=== PATIENT | male | born 1945 | race Caucasian/White ===

== ENCOUNTER → 2020-03-22 09:57 | Outpatient (CLI) | payer MEDICARE, SELFPAY ==
--- NOTE | ~2020-03-22 | XR_ITS ---
XR hand BI arthritis min 3V DATE: 03/22/2020 10:20 INDICATION: Bilateral hand pain TECHNIQUE: 4 views of each hand COMPARISON: None FINDINGS: Small chronic dorsal avulsion fracture at the base of the distal phalanx of the second digi t is suggested; alternatively, this might be a small degenerative ossicle. There is osteoarthritic change at the distal interphalangeal joints primarily of the left hand. No fracture or dislocation, periosteal reaction or bone destruction, erosive change or chondrocalcino sis of the left hand. Similarly there is a small dorsal avulsion fracture or degenerative ossicle at the distal interphalan geal joint of the right second digit, as well as osteoarthritic change primarily at the distal interp halangeal joints as well as the proximal interphalangeal joint of the fifth digit. There is also a sm all probable degenerative ossicle at the proximal interphalangeal joint of the fifth digit. No recent fracture or dislocation, periosteal reaction or bone destruction, erosive change or chondro calcinosis of the right hand is evident. 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 ETIC EVENTS SCORER IMPRESSION: Bilateral osteoarthritis involving primarily the distal interphalan geal joints and right fifth proximal interphalangeal joint
== END ==
PROVIDERS: PCP Internal Medicine; Visit Provider Nurse Practitioner
DX: M19.041 Primary osteoarthritis, right hand (principal); M19.042 Primary osteoarthritis, left hand
CPT/HCPCS: 73130

== ENCOUNTER → 2020-04-27 10:43 | Outpatient (CLI) | payer MEDICARE, SELFPAY ==
--- NOTE | ~2020-04-27 | CT_ITS ---
EXAMINATION: CTA [facility] DATE: 04/27/2020 12:06 INDICATION: TECHNIQUE: Computed tomographic angiography (CTA) of the arteries of the bilateral hands, wrists and forearms was performed with 100 mL Omnipaque 350 intravenous contrast. Automated exposure control and iterative reconstruction technique were employed. The dose-length product was 172 mGy-cm. COMPARISON: None. FINDINGS: There is runoff with contrast opacification extending to the hands in the bilateral radial and ulnar arteries. The radial arteries at the bilateral hands appear to be the predominant supply to the deep palmar arch as well as the principle pollicis arteries to the bilateral thumbs. The bilateral ulnar a rteries appear to be the predominant supply to the superficial palmar arch on both the left and right . Although contrast is seen within these arteries in the bilateral hands the degree of contrast opaci fication as well as the small size of the arteries precludes assessment for any stenosis. No discerni ble contrast within the digital arteries, the size of which is likely too small for definitive determ ination. Bones and soft tissues are unremarkable. IMPRESSION: 1. Runoff in the bilateral radial and ulnar arteries to the hands which appear to supply the deep an d superficial palmar arches respectively. Assessment for patency of the more peripheral distal arteri es or for stenosis more proximally is limited by the small size of the vessels relative to the resolu tion of CT. Reviewed, dictated and finalized at location A. STICAL TILE CARPENTERS SUPERVISOR IMPRESSION: 1. Runoff in the bilateral radial and ulnar arteries to the hands which appear to supply the deep and superficial palmar arches respectively. Assessment for patency of the more peripheral distal arteries or for stenosis more proximally is limited by the small size of the vessels relative to the resolution of CT.
[2020-04-27 11:01] LABS: Estimated Glomerular Filt Rate > 60
== END ==
PROVIDERS: PCP Internal Medicine; Visit Provider Plastic Surgery
DX: I99.8 Other disorder of circulatory system (principal)
CPT/HCPCS: 73206; Q9967

== ENCOUNTER 2020-05-04 10:39 | Outpatient (CLI) | payer MEDICARE, SELFPAY ==
[2020-05-04 11:06] LABS: Add Urine Microscopic? NO; Appearance Urine Clear (Clear); Bilirubin Urine Negative (Negative); Blood Urine Negative (Negative); Color Urine Yellow (Yellow); Glucose Urine UA Negative (Negative); Ketones Urine Negative (Negative); Leukocyte Esterase Ur Negative LEU/UL (NEGATIVE); Nitrate Urine Negative (Negative); Protein Urine Negative (Negative); Urobilinogen Urine Negative mg/dL (<2.0)
[2020-05-04 11:21] LABS: Alanine Aminotransferase 37 U/L (4-50); Albumin Level 4.3 g/dL (3.5-5.1); Alkaline Phosphatase 63 U/L (38-126); Anion Gap 6 mmol/L (8-16); Aspartate Amino Transferase 49 U/L (17-59); Bilirubin,Total 0.5 mg/dL (0.2-1.3); Blood Urea Nitrogen 13 mg/dL (9-20); CRP < 0.5 mg/dL (<1.0); Calcium 9.1 mg/dL (8.4-10.2); Carbon Dioxide 31 mmol/L (22-30); Chloride 97 mmol/L (98-107); Estimated Glomerular Filt Rate > 60; Glucose 100 mg/dL (75-110); Sodium 134 mmol/L (137-145)
[2020-05-04 11:26] LABS: Complement C3 112 mg/dL (88-165)
[2020-05-04 11:28] LABS: Erythrocyte Sedimentation Rate 15 mm/hr (0-20)
[2020-05-07 12:44] LABS: Scleroderma 70 Antibody <1.0
[2020-05-09 04:04] LABS: Cryoglobulin, QL Negative (Negative)
[2020-05-09 04:33] LABS: Anti Centromere B Antibody <1.0
== END 2020-05-04 10:40 | disposition home or self-care (01) ==
PROVIDERS: PCP Internal Medicine; Visit Provider Internal Medicine
DX: I73.00 Raynaud's syndrome without gangrene (principal); R53.83 Other fatigue
CPT/HCPCS: 36415; 80053; 81003; 82595; 84443; 85652; 86140; 86160; 86235

== ENCOUNTER 2022-05-05 08:31 | Outpatient (CLI) | payer MEDICARE, SELFPAY ==
--- NOTE | ~2022-05-05 | US_ITS ---
EXAMINATION: US arterial ankle brachial ind DATE: 05/05/2022 09:31 INDICATION: Lower limb pain TECHNIQUE: Segmental pressures and plethysmographic and Doppler waveforms of the brachial and lower e xtremity arteries were obtained. COMPARISON: None. FINDINGS: Right and left brachial artery pressures of 131 mm Hg and 135 mm Hg, respectively, are concordant (no rmal difference <= 30 mmHg). The right ankle-brachial index (MISAEL) is 1.39 (normal >= 0.9-1.0). The right great toe-brachial index (TBI) is 0.50 (normal >= 0.65). Arterial Doppler waveforms are biphasic with brisk systolic upstrokes at both right posterior tibial and dorsalis pedis arteries. The left MISAEL is 1.42. The left TBI is 0.69. Arterial Doppler waveforms are biphasic with brisk systol ic upstrokes at both left posterior tibial and dorsalis pedis arteries. IMPRESSION: 1. Mild arterial occlusive disease to the right lower limb with mildly decreased right TBI. Bilateral ABIs and left TBI remain normal. Reviewed, dictated and finalized at location A. CONTROL SERVICE SALES AGENT IMPRESSION: 1. Mild arterial occlusive disease to the right lower limb with mildly decrease d right TBI. Bilateral ABIs and left TBI remain normal.
== END 2022-05-05 08:32 | disposition home or self-care (01) ==
PROVIDERS: PCP Internal Medicine; Visit Provider Nurse Practitioner
DX: M79.606 Pain in leg, unspecified (principal); I73.9 Peripheral vascular disease, unspecified
CPT/HCPCS: 93922

== ENCOUNTER 2022-05-30 17:20 | Emergency (ER) | payer MEDICARE, SELFPAY ==
[2022-05-30] VITALS (13 sets, daily range): BP systolic 114–164; BP diastolic 60–85; PULSE 45–77; RESP 12–30; TEMP 37; O2SAT 96–100
--- NOTE | ~2022-05-30 | CT_ITS ---
EXAMINATION: CT thoracic spine wo con DATE: 05/30/2022 21:13 INDICATION: back pain status post fall . TECHNIQUE: Computed tomography (CT) of the thoracic spine was performed without intravenous contrast. Automated exposure control and iterative reconstruction technique were employed. The dose-length pro duct was 1527.99 mGy-cm. COMPARISON: X-ray RIBS, same date. FINDINGS: THORACIC SPINE: Vertebral body alignment intact. Mild height loss at T5 with superior endplate deformity. No definite evidence of posterior cortex or posterior element involvement. Remaining vertebral body heights pres erved. Multilevel degenerative disc disease. No traumatic malalignment. Visualized lung parenchyma is clear. Coronary artery calcifications IMPRESSION: Mild compression fracture at T5. Reviewed, dictated and finalized at location K.
--- NOTE | ~2022-05-30 | XR_ITS ---
EXAMINATION: XR ribs BI 3V w CXR 2V Exam Date/Time: 05/30/2022 18:45 CDT HISTORY: fall, bilateral rib pain, MORE PAIN RIGHT SIDE Comparison: 07/14/2014. RESULT: Lines, tubes, and devices: None. Lungs and pleura: Clear. Cardiothymic silhouette: Stable. Other: No acute upper abdominal finding. Mild anterior wedge deformity of an upper thoracic vertebra l body, likely T5, new since the comparison. IMPRESSION: No acute cardiopulmonary process. Mild anterior wedge deformity, likely at T5, of uncertain age, paulette elate with pain/tenderness. No acute abnormality detected in the ribs. Reviewed, dictated and finalized at location K. IMPRESSION: No acute cardiopulmonary process. Mild anterior wedge deformity, likely at T5, of uncertain age, correlate with pain/tenderness. No acute abnormality detected in the ribs.
[2022-05-30] MEDS: HYDROmorphone HCL INJ (*CRX) 1 MG/ML SYR IM (21:37)
--- NOTE | 2022-05-30 22:12 | ECG_ITS ---
Measurements Intervals [place] Rate: 58 P: 133 [place]: 166 QRS: 152 QRSD: 111 T: 123 QT: 400 QTc: 395 Interpretive Statements SINUS BRADYCARDIA RIGHT AXIS DEVIATION POSSIBLE LEFT ATRIAL ENLARGEMENT INTRAVENTRICULAR CONDUCTION DELAY DELAYED PRECORDIAL R/S TRANSITION T WAVE ABNORMALITY IN HIGH LATERAL LEADS- CONSIDER ISCHEMIA ABNORMAL ECG COMPARED TO ECG 12/23/2018 10:53:10 INTRAVENTRICULAR CONDUCTION DELAY NOW PRESENT T WAVE ABNORMALITY NOW PRESENT Electronically Signed On 05-31-2022 6:43:07 CDT by Delonte Mosquera D.O.
--- NOTE | 2022-05-30 22:55 | PC.NURSE ---
Pt report given to ZACK Lomeli at this time.
[2022-05-30] MEDS: KETOROLAC 30 MG/ML VIAL (*BKC) 15 MG IM (23:00)
[2022-05-31 00:24] VITALS: PULSE 68; O2SAT 98
--- NOTE | 2022-05-31 00:40 | ED.GENADULT ---
HPI - General Adult General Chief complaint: Fall Stated complaint: Fall Time Seen by Provider: 05/30/22 20:29 History of Present Illness HPI narrative: Patient 77-year-old gentleman who presents the emergency department with chief complaint of rib pain and back pain. The patient [place] and landed on his back. The patient reports he has pain in the right side of his ribs and in his thoracic spine area. Patient denies numbness or tingling denies focal neurological deficit denies saddle anesthesia. Patient states pain is worse with movement and improved with rest. Related Data Home Medications Medication Instructions Recorded Confirmed multivitamin 1 tablet PO DAILY 03/27/19 07/25/21 Allergies Allergy/AdvReac Type Severity Reaction Status Date / Time No Known Allergies Allergy Unknown Verified 05/22/22 11:03 Review of Systems Review of Systems: A 10 system review of systems was completed on the patient and is negative except for what is stated in the HPI. Nursing and ancillary documentation was reviewed. [facility] Past Medical History Medical History Bladder cancer Chicken pox Erectile dysfunction Ganglion cyst removed Hyperlipidemia Hypothyroidism (acquired) Peripheral arterial disease Rising PSA level Skin cancer removed White coat syndrome with high blood pressure but without hypertension Surgical History Surgical History History of biopsy History of bladder surgery 12/26/2018 Family History Family History Sibling Type 2 diabetes mellitus Father Type 2 diabetes mellitus CHF (congestive heart failure) Mother Type 2 diabetes mellitus Social History Social History Smoking status: Never smoker Alcohol intake: current Alcohol use details: 3-4 glasses of wine a week. Substance use type: does not use Lack of Transportation: No Lack of Food: Never True Current Housing: I Have Housing Concerned About Future Housing: No Difficulty Paying Gas/Electric Bills: No Difficulty Paying for Meds: No Currently Unemployed: No Education: Master's Degree or Higher Difficulty w/ Childcare or Family Care: No Exam Narrative: GENERAL: Well-appearing, well-nourished, and in no acute distress. HEAD: Normocephalic, atraumatic. EYES: PERRLA and EOMI. ENT: Nares clear, no rhinorrhea or epistaxis. Mucous membranes moist. NECK: Supple. CHEST: Clear to auscultation. No respiratory distress. HEART: Regular rate and rhythm. No murmur heard. Normal peripheral pulses. ABDOMEN: Soft, nontender, nondistended, normal active bowel sounds. Back: There is tenderness to palpation in the thoracic spine no bony step-off noted EXTREMITIES: Normal range of motion. No edema. SKIN: Warm, dry, no rash. NEURO: No focal deficits. Alert and oriented x3. PSYCH: Normal mood and affect. Course Vital Signs Vital signs: Vital Signs Temperature 37.0 C 05/30/22 17:45 Pulse Rate 73 05/30/22 17:45 Respiratory Rate 12 05/30/22 17:45 Blood Pressure 164/78 H 05/30/22 17:45 Pulse Oximetry 99 05/30/22 17:45 Oxygen Delivery Room Air 05/30/22 17:45 Temperature 37.0 C 05/30/22 17:45 Pulse Rate 57 L 05/30/22 22:17 Respiratory Rate 14 05/30/22 22:17 Blood Pressure 126/61 05/30/22 22:16 Pulse Oximetry 100 05/30/22 22:17 Oxygen Delivery Room Air 05/30/22 17:45 Medical Decision Making MDM Narrative Medical decision making narrative: Differential diagnosis includes fractures, pneumothorax, Rib x-ray showed no evidence of pneumothorax no evidence of rib fracture this displaced. There was a possible compression fracture present in the thoracic spine and they recommended additiona
[2022-05-31 01:10] VITALS: BP 122/76; PULSE 75; RESP 18; O2SAT 98
== END 2022-05-31 01:10 | disposition home or self-care (01) ==
PROVIDERS: Emergency Provider Emergency Medicine; PCP Internal Medicine
DX: S22.050A Wedge compression fracture of T5-T6 vertebra, initial encounter for closed fracture (principal); S20.211A Contusion of right front wall of thorax, initial encounter; Z85.51 Personal history of malignant neoplasm of bladder; E78.5 Hyperlipidemia, unspecified; E03.9 Hypothyroidism, unspecified; I73.9 Peripheral vascular disease, unspecified; Z85.828 Personal history of other malignant neoplasm of skin; R00.1 Bradycardia, unspecified; I45.9 Conduction disorder, unspecified; R94.31 Abnormal electrocardiogram [ECG] [EKG]; W01.0XXA Fall on same level from slipping, tripping and stumbling without subsequent striking against object, initial encounter; Y93.54 Activity, bowling
CPT/HCPCS: 71046; 71110; 72128; 93005; 96372; 99284; J1170; J1885

== ENCOUNTER 2022-06-09 07:58 | Outpatient (CLI) | payer MEDICARE, SELFPAY ==
[2022-06-13 16:22] LABS: Testosterone Free 42.8 pg/mL (30.0-135.0); Testosterone Total 329 ng/dL (250-1100)
== END 2022-06-09 07:59 | disposition home or self-care (01) ==
LOC: ANHGOSHLAB 07:59
PROVIDERS: PCP Internal Medicine; Visit Provider Anesthesiology Pain Medicine
DX: S22.050D Wedge compression fracture of T5-T6 vertebra, subsequent encounter for fracture with routine healing (principal); X58.XXXD Exposure to other specified factors, subsequent encounter
CPT/HCPCS: 36415; 84402; 84403

== ENCOUNTER 2022-09-07 07:56 | Outpatient (CLI) | payer MEDICARE, SELFPAY ==
[2022-09-07 19:33] LABS: Erythrocyte Sedimentation Rate 8 mm/hr (0-20)
[2022-09-07 19:41] LABS: Rheumatoid Factor < 12.0 IU/ML (<12)
[2022-09-07 20:39] LABS: Hepatitis B Core IgM Result Negative (Negative)
[2022-09-07 20:43] LABS: HIV 1/2 Ab P24 Ag Result Negative (Negative)
[2022-09-07 20:51] LABS: Hepatitis C Virus Antibody Negative (Negative)
[2022-09-10 13:36] LABS: SS-A <1.0; SS-B <1.0
[2022-09-10 15:21] LABS: Albumin 4.2 g/dL (3.8-4.8); Alpha 1 Globulin 0.3 g/dL (0.2-0.3); Alpha 2 Globulin 0.7 g/dL (0.5-0.9); Beta 1 Globulin 0.4 g/dL (0.4-0.6); Gamma Globulin 0.9 g/dL (0.8-1.7); Protein, Total 6.8 g/dL (6.1-8.1)
[2022-09-11 05:52] LABS: Homocysteine 10.2 umol/L (<11.4)
[2022-09-11 19:10] LABS: Methylmalonic Acid 122 nmol/L (87-318)
[2022-09-11 19:16] LABS: Lyme Disease Ab (IgM), Blot Negative (Negative); Lyme Disease Ab(IgG), Blot Negative (Negative)
[2022-09-12 05:54] LABS: Creatinine, Random Urine 47 mg/dL (20-320); Total Protein/Creatinine Ratio 106 mg/g creat (25-148)
[2022-09-14 23:53] LABS: Coproporphyrin I 20.9 (6.5-33.2)
== END 2022-09-07 07:57 | disposition home or self-care (01) ==
LOC: ANHGOSHLAB 07:58
PROVIDERS: PCP Internal Medicine; Visit Provider Nurse Practitioner
DX: G62.9 Polyneuropathy, unspecified (principal)
CPT/HCPCS: 36415; 82570; 82607; 83090; 83921; 84120; 84155; 84156; 84165; 84166; 84443; 85652; 86038; 86235; 86430; 86617; 86703; 86705; 86803; G0432

== ENCOUNTER 2023-02-23 08:00 | Outpatient (RCR) | payer MEDICARE, SELFPAY ==
--- NOTE | 2023-01-26 12:54 | OPREHPOC ---
Outpatient Therapy Plan of Care This is a Multidisciplinary Plan of Care that may contain components documented by all disciplines (PT, OT, and ST.) PT Problem 1 PT Problem #1 Knowledge Deficit PT Goal 1 Goal Pt to be IND with issued HEP Target Visit 4 PT Problem 2 PT Problem #2 Impaired Balance PT Goal 1 Goal Pt to report no LOB during morning walk. Target Visit 4 PT Goal 2 Goal Pt to improve his single leg stance to 10s deana Target Visit 4 PT Problem 3 PT Problem #3 Impaired Functional Mobil PT Goal 1 Goal Pt to demonstrate a 20lb lift and carry from ground without a LOB. Target Visit 4
--- NOTE | 2023-01-26 12:54 | PTOPEVAL1 ---
Assessment and note entered by Minal Barrera, PT, DPT Evaluation Information Assessment Status Evaluation Diagnosis polyneuropathy Subjective Information Pt states about a year ago he stated waking up with a warm, burning, and numbing feeling in his BLEs. Pt states he is not diabetic but has positive axonal involvement on a nerve conduction study. Pt states in the last couple of months has noticed veering off path when he is walking and a change in his gait. Pt is very active at his baseline, he currently walks about 3-4 miles a day , he still bikes, does yard work, and exercises multiple times a week. Reported Pain Level Pain Score 6: Self Report Assessment PT Clinical Summary Willy presents to therapy today for his initial evaluation with a diagnosis of polyneuropathy with balance deficits. Today he demonstrates good scores on the PEREZ and DGI but demonstrates decreased stability with higher level balance challenges. He also demonstrates less confidence with dynamic balance challenges. Skilled therapy services are indicated for balance training, functional movement training, and to improve confidence with balance. Plan of Care Interventions Gait Training,Neuro Re-education,Patient/Caregiver Educati,Therapeutic Activities,Therapeutic Exercise PT Services Indicated Yes Treatment Frequency and 1x/wk for 4 visits Duration These treatments will address the objective and functional deficits as defined above. The patient will be advanced safely and appropriately in order for the patient to progress towards his/her prior level of function. Additional exercises will be introduced and as well as a comprehensive home exercise program upon discharge, if needed, ?to ensure carryover of functional gains achieved in the clinic. This treatment plan has been reviewed and agreement upon by the patient.
--- NOTE | 2023-02-23 08:53 | PTOPPROG ---
Assessment and note entered by Minal Barrera, PT, DPT Evaluation Information Assessment Status Progress Diagnosis polyneuropathy Subjective Information Pt got his nerve conduction test which showed neuropathy, but not the traditional neuropathy, he his supposed to call with more specific results. Pt feels like pt has been helping. He states when he walks in the morning he does not feel like he weaves around and is no longer bumping into batres at home. He reports the intensity of his numbness has not changed. Assessment PT Clinical Summary Willy presents to therapy today for his progress report following 5 visits of skilled therapy to treat his diagnosis of polyneuropathy. Today he demonstrates improvements in his static and dynamic single leg balance. He reports improved functional mobility and functional balance when walking. He continues to have impaired sensations in his feet deana. Educated pt on the benefits electric nerve conduction to treat his neuropathy. Plan of Care Interventions Gait Training,Neuro Re-education,Patient/Caregiver Educati,Therapeutic Activities,Therapeutic Exercise PT Services Indicated Yes Treatment Frequency and follow up if needed Duration These treatments will address the objective and functional deficits as defined above. The patient will be advanced safely and appropriately in order for the patient to progress towards his/her prior level of function. Additional exercises will be introduced and as well as a comprehensive home exercise program upon discharge, if needed, ?to ensure carryover of functional gains achieved in the clinic. This treatment plan has been reviewed and agreement upon by the patient.
--- NOTE | 2023-03-13 13:55 | PTOPDC ---
Assessment and note entered by Minal Barrera, PT, DPT Evaluation Information Assessment Status Discharge Diagnosis polyneuropathy Subjective Information Pt got his nerve conduction test which showed neuropathy, but not the traditional neuropathy, he his supposed to call with more specific results. Pt feels like pt has been helping. He states when he walks in the morning he does not feel like he weaves around and is no longer bumping into batres at home. He reports the intensity of his numbness has not changed. Assessment PT Clinical Summary Willy presents to therapy today for his progress report following 5 visits of skilled therapy to treat his diagnosis of polyneuropathy. Today he demonstrates improvements in his static and dynamic single leg balance. He reports improved functional mobility and functional balance when walking. He continues to have impaired sensations in his feet deana. Educated pt on the benefits electric nerve conduction to treat his neuropathy.
== END 2023-03-13 14:17 | disposition home or self-care (01) ==
LOC: ANHGOSHPT 08:00
PROVIDERS: PCP Internal Medicine
DX: R26.89 Other abnormalities of gait and mobility (principal); G62.9 Polyneuropathy, unspecified
CPT/HCPCS: 97110; 97112; 97161; 97750

== ENCOUNTER 2023-05-31 07:54 | Outpatient (CLI) | payer MEDICARE, SELFPAY ==
[2023-05-31 12:48] LABS: Basophils Absolute Auto 0.1 K/mm3 (0.0-0.1); Basophils Percent Auto 1.3 % (0.2-1.2); Eosinophils Absolute Auto 0.1 K/mm3 (0-0.3); Eosinophils Percent Auto 1.8 % (0-4.4); Hematocrit 42.7 % (42.0-52.0); Hemoglobin 13.3 g/dL (14.0-18.0); Immature Granulocyte Absolute 0.01 K/mm3 (0.00-0.031); Immature Granulocyte Percent A 0.2 % (0-0.5); Lymphocytes Absolute Auto 2.32 K/mm3 (0.9-3.2); Lymphocytes Percent Auto 41.4 % (18.3-44.2); Mean Corpuscular HGB Conc 31.1 g/dl (32-36); Mean Corpuscular Hemoglobin 28.5 pg (26-34); Mean Corpuscular Volume 91.6 fl (80-100); Mean Platelet Volume 10.5 fl (7.4-10.4); Monocytes Absolute Auto 0.5 K/mm3 (0.1-0.6); Monocytes Percent Auto 9.5 % (2.6-8.5); Neutrophils Absolute Auto 2.6 K/mm3 (1.3-6.7); Neutrophils Percent Auto 45.8 % (45.5-73.1); Platelet Count Result 269 k/mm3 (150-375); Red Blood Count 4.66 M/mm3 (4.6-6.20); Red Cell Distribution Width 12.9 % (11.5-14.5); White Blood Count 5.6 K/mm3 (4.5-10.0)
[2023-05-31 13:00] LABS: Alanine Aminotransferase 33 U/L (6-50); Albumin Level 4.4 g/dL (3.5-5.1); Alkaline Phosphatase 78 U/L (38-126); Anion Gap 6 mmol/L (8-16); Aspartate Amino Transferase 64 U/L (17-59); Bilirubin,Total 0.6 mg/dL (0.2-1.3); Blood Urea Nitrogen 14 mg/dL (9-20); Calcium 9.3 mg/dL (8.4-10.2); Carbon Dioxide 29 mmol/L (22-30); Chloride 100 mmol/L (98-107); Cholesterol 140 mg/dL (0-200); Estimated Glomerular Filt Rate > 60; Glucose 93 mg/dL (65-110); HDL Direct 58 mg/dL; Potassium 4.4 mmol/L (3.4-5.0); Sodium 135 mmol/L (137-145); Triglycerides 50 mg/dL (<150)
[2023-05-31 13:10] LABS: LDL Cholesterol Direct 66 mg/dL
== END 2023-05-31 07:55 | disposition home or self-care (01) ==
LOC: ANHGOSHLAB 07:55
PROVIDERS: PCP Internal Medicine; Visit Provider Nurse Practitioner
DX: E03.9 Hypothyroidism, unspecified (principal); E78.2 Mixed hyperlipidemia; R73.03 Prediabetes; R97.20 Elevated prostate specific antigen [PSA]
CPT/HCPCS: 36415; 80053; 80061; 84153; 84443; 85025

== ENCOUNTER 2024-06-02 08:06 | Outpatient (CLI) | payer MEDICARE, SELFPAY ==
--- OUTSIDE RECORDS SUMMARY | 2024-06-02 08:19 | XMS_ITS | Encounter Summary ---
Author Organization [facility] Address [address] [place] [address] Care Team Providers Care Manager Desktop Name Role Phone Unavailable Primary Care Provider Unavailabl e Encounter Details Date Type Department Care Team (Late st Contact Info) Description 05/10/2022 Lab Requisition [facility] [address] [place] [id number] Dominguez Ho MD [address] [place] [address] Social History Tobacco Use Types Packs/Day Years Used Date Smoking Tobacco: Never Assessed Sex and Gender Information Value Date Recorded Sex Assigned at Not on file Gender Identity Not on file Sexual Orientation Not on file documented as of this encounter Plan of Treatment Not on file documented as of this encounter Procedures Procedure Name Priority Date/Time Associated Diagnosis Comments DERMATOPATHOLOGY Routine 05/09/2022 3:33 AM PRINCIPAL PRODUCT MANAGER documented in this encounter Results * DERMATOPATHOLOGY (05/09/2022 3:33 AM PRINCIPAL PRODUCT MANAGER) Case Report Dermatopathology Report Case: [id number] Authorizing Provider: Dominguez Ho MD Collected: 05/09/2022 03:33 AM Ordering Location: [facility] Received: 05/10/2022 01:46 PM Pathologist: Huong Encinas MD Specimen: Skin, right frontal parietal scalp 3 4:01 PM PRINCIPAL PRODUCT MANAGER DERMATOPATHOLOGY LABORATORY Final Diagnosis Specimen A. 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 The specimen consists of a shave biopsy measuring 11x8x3 mm. Jar 0. 3 4:01 PM [facility]ER[facility]ATH[facility]OR[facility]ORY Microscopic Description Specimen A. SKIN, right frontal parietal scalp: The epidermis shows parakeratosis, full thickness disorderly maturation of keratinocytes, mitoses at different levels, and dyskeratotic cells. 3 4:01 PM [facility]MAT[facility]ATH[facility]ATORY Disclaimer An external and internal positive and negative controls are appropriate for the histochemical, immunohistochemical and immunofluorescence stain(s) in this case (if any), except where stated explicitly. The performance characteristics of the stain(s) cited in this report were developed and its performance characteristic determined by the Dermatopathology Laboratory at [facility], directed by Dr. Kerry Walden. These tests need not be, and therefore are not, approved by the [place] Food and Drug Administration. The tests are used for clinical purposes. Billing Codes Specimen Charges Stain Charges 17571 1 3 4:01 PM [facility] Embedded Images 3 4:01 PM [facility] Pathology/Cytolo gy TISSUE SPECIMEN FROM SKIN / Unknown 05/09/2022 3:33 AM PRINCIPAL PRODUCT MANAGER 05/10/2022 1:46 PM PRINCIPAL PRODUCT MANAGER Dominguez Ho MD LAB - PATHOLOGY/[facility] DERMATOPATHOLOGY LABORATORY [facility] - Department of Dermatology [address], [address] [phone] documented in this encounter Visit Diagnoses Not on filedocumented in this encounter
--- OUTSIDE RECORDS SUMMARY | 2024-06-02 08:19 | XMS_ITS | Clinical Summary ---
Author Organization [facility] Address [address] [place] [address] Care Team Providers Care Safety Trainer Name Role Phone Unavailable Primary Care Provider Unavailabl e Source Comments [facility],non-owned Affiliates and Associated Physician Practices is amultiple site organization consisting of ambulatory clinics and hospital sitesin [place], [place], [place] and [place]. This disclosure is being madepursuant to the Care Everywhere program and may not contain all information available regarding this patient. Last updated 17.[facility] [employer] Social History Tobacco Use Types Packs/Day Years Used Date Smoking Tobacco: Never Assessed Sex and Gender Information Value Date Recorded Sex Assigned at Not on file Gender Identity Not on file Sexual Orientation Not on file Plan of Treatment Health Maintenance Due Date Last Done Comments HEPATITIS C SCREENING 02/29/1964 DTAP/TDAP/TD VACCINES (1 - Tdap) 1965 PNEUMOCOCCAL VACCINE 50+ (1 of 1 - PCV) 1996 ZOSTER VACCINE (1 of 2) 1996 Respiratory Syncytial Virus (RSV) Vaccine Pt: or over 60 yrs (1 - 1-dose 75+ series) 2021 COVID-19 VACCINE ( - 2023-2 5 season) 2023 INFLUENZA VACCINE (#1) 2023 DEPRESSION SCREENING 03/19/2024 MEDICARE AWV CALENDAR YEAR 2024 HEPATITIS B VACCINE Aged Out No longe r eligible based on patient's age to complete this topic HIB VACCINE Aged Out No longer eligi ble based on patient's age to complete this topic HPV VACCINE Aged Out No longer eligi ble based on patient's age to complete this topic MENINGOCOCCAL (Group B) VACC INE SHARED DECISION-MAKING Aged Out No longer eligibl e based on patient's age to complete this topic MENINGOCOCCAL GROUPS A/C/Y/W VACCINE Aged Out No longer eligible b ased on patient's age to complete this topic Willy Arguelles Personal/Family Self 1945 [address] [id number]
--- OUTSIDE RECORDS SUMMARY | 2024-06-02 08:19 | XMS_ITS | Encounter Summary ---
Author Organization [facility] Address [address] [facility] [place] [address] Care Team Providers Care New Car Salesperson Name Role Phone Unavailable Primary Care Provider Unavailabl e Encounter Details Date Type Department Care Team (Late st Contact Info) Description 04/07/2022 Lab Requisition [facility] DermPath Lab [address] [facility] [place] [id number] Dominguez Ho MD [address] [place] [address] Social History Tobacco Use Types [...] Priority Date/Time Associated Diagnosis Comments DERMATOPATHOLOGY Routine 04/05/2022 12:0 0 AM ARBORICULTURIST documented in this encounter Results * DERMATOPATHOLOGY (04/05/2022 12:00 AM ARBORICULTURIST) Case Report Dermatopathology Report Case: [id number] Authorizing Provider: Dominguez Ho MD Collected: 04/05/2022 12:00 AM Ordering Location: [facility] DermPath Lab Received: 04/07/2022 06:52 AM Pathologist: Brooklyn Vickers MD Specimens: A) - Skin, right post lat scalp B) - Skin, left occiput. scalp 1:50 PM ARBORICULTURIST DERMATOPATHOLOGY LABORATORY Final Diagnosis Specimen A. SKIN, right post lat scalp: SQUAMOUS CELL CARCINOMA IN SITU, PRESENT AT THE BASE OF THE SPECIMEN (D04.4) (see microscopic description and comment) Specimen B. SKIN, left occiput. scalp: BASAL CELL CARCINOMA, INFILTRATIVE PATTERN (C44.41) 1:50 PM [facility] DERMATOPATHOLOGY LABORATORY Clinical History A-B: R/O SCC/BCC 1:50 PM [facility] DERMATOPATHOLOGY LABORATORY Gross Description Specimen A: Received is one formalin filled container labeled with the patient's name and designated right post lat scalp. The specimen consists of a shave biopsy measuring 9x8x2 mm. Jar 0. Specimen B: Received is one formalin filled container labeled with the patient's name and designated left occiput. scalp. The specimen consists of a shave biopsy measuring 10x9x3 mm. Jar 0. 1:50 PM [facility] DERMATOPATHOLOGY LABORATORY Microscopic Description Specimen A. SKIN, right post lat scalp: The epidermis shows parakeratosis, full thickness disorderly maturation of keratinocytes, mitoses at different levels, and dyskeratotic cells. The lesion extends to the base of the biopsy. COMMENT: An invasive squamous cell carcinoma cannot be ruled out. Specimen B. SKIN, left occiput. scalp: Within the dermis there are nodular aggregates of basaloid cells associated with fibromyxoid stroma and epithelial-stromal clefts. At the advancing margin of the neoplasm, there are smaller angulated nests that infiltrate the dermis. 1:50 PM [facility] DERMATOPATHOLOGY LABORATORY Disclaimer An external and internal positive and negative controls are appropriate for the histochemical, immunohistochemical and immunofluorescence stain(s) in this case (if any), except where stated explicitly. The performance characteristics of the stain(s) cited in this report were developed and its performance characteristic determined by the Dermatopathology Laboratory at [facility], directed by Dr. Kerry Walden. These tests need not be, and therefore are not, approved by the [place] Food and Drug Administration. The tests are used for clinical purposes. Billing Codes Specimen Charges Stain Charges 61155 37075 1 1 1:50 PM [facility] DERMATOPATHOLOGY LABORATORY Embedded Images 1:50 PM [facility] DERMATOPATHOLOGY LABORATORY Pathology/Cytology TISSUE SPECIMEN FROM SKIN / Unknown 04/05/2022 04/07/2022 6:52 AM [facility] Miscellaneous samples (specimen) TISSUE SPECIMEN FROM SKIN / Unknown 04/05/2022 04/07/2022 6:52 AM ARBORICULTURIST Dominguez Ho MD LAB - PATHOLOGY/CYTO LOGY ORDERABLES DERMATOPATHOLOGY LABORATORY [facility] - Department of Dermatology [facility] Medicine [address] [place] [address], [address] [phone] documented in this encounter Visit Diagnoses Not on filedocumented in this encounter
--- OUTSIDE RECORDS SUMMARY | 2024-06-02 08:19 | XMS_ITS ---
Care Plan - [facility] Created on: June 02, 2024 JIMBO WALSH : 1945 Sex: Male Author Organization [facility] Address [address] [place] [address] Phone Care Team Providers Care Tester Sound Name Role Phone Unavailable Unavailable Unavailable
--- OUTSIDE RECORDS SUMMARY | 2024-06-02 08:19 | XMS_ITS | Encounter Summary ---
Author Organization [facility] Address [address] [facility] [place] [address] Care Team Providers Care Customer Experience Consultant Name Role Phone Unavailable Primary Care Provider Unavailabl e Encounter Details Date Type Department Care Team (Late st Contact Info) Description 07/17/2023 Lab Requisition [facility] - DermPath Lab [address] [place] [id number] Jesse Wade MD [facility] DERMATOLOGY [address] [place] [phone] Neoplasm of uncertain behavior of skin; Actinic keratosis Social History Tobacco Use Types Packs/Day Years Used Date Smoking Tobacco: Never Assessed Sex and Gender Information Value Date Recorded Sex Assigned at Not on file Gender Identity Not on file Sexual Orientation Not on file documented as of this encounter Plan of Treatment Not on file documented as of this encounter Procedures Procedure Name Priority Date/Time Associated Diagnosis Comments DERMATOPATHOLOGY Routine 07/17/2023 3:33 AM CDT Neoplasm of uncertain behavior of skin Actinic keratosis documented in this encounter Results * DERMATOPATHOLOGY (07/17/2023 3:33 AM CDT) Case Report Dermatopathology Report Case: [id number] Authorizing Provider: Jesse Wade MD Collected: 07/17/2023 03:33 AM Ordering Location: [facility] - Received: 07/18/2023 12:07 PM DermPath Lab Pathologist: Lina Encinas MD Specimen: Skin, left shoulder 2:04 PM CDT DERMATOPATHOLOGY LABORATORY Final Diagnosis Specimen A. SKIN, left shoulder: PIGMENTED SEBORRHEIC KERATOSIS (L82.1) 2:04 PM CDT DERMATOPATHOLOGY LABORATORY Clinical History Dysplastic Nevus 4 2:04 PM CDT DERMATOPATHOLOGY LABORATORY Gross Description Specimen A: Received is one formalin filled container labeled with the patient's name and designated left shoulder. The specimen consists of a shave biopsy measuring 3x3x1 mm. Jar 0. 4 2:04 PM T DERMATOPATHOLOGY LABORATORY Microscopic Description Specimen A. SKIN, left shoulder: Sections show an acanthotic lesion composed of relatively uniform keratinocytes. There is hyperkeratosis and pseudo horn cysts. Pigment is present in the keratinocytes composing this tumor. 4 2:04 PM T DERMATOPATHOLOGY LABORATORY Disclaimer An external and internal positive and negative controls are appropriate for the histochemical, immunohistochemical and immunofluorescence stain(s) in this case (if any), except where stated explicitly. The performance characteristics of the stain(s) cited in this report were developed and its performance characteristic determined by the Dermatopathology Laboratory at [facility], directed by Dr. Kerry Walden. These tests need not be, and therefore are not, approved by the [place] Food and Drug Administration. The tests are used for clinical purposes. Billing Codes Specimen Charges Stain Charges 70059 1 4 2:04 PM CDT DERMATOPATHOLOGY LABORATORY Embedded Images 4 2:04 PM CDT DERMATOPATHOLOGY LABORATORY Pathology/Cytolo gy TISSUE SPECIMEN FROM SKIN / Unknown 07/17/2023 3:33 AM CDT 07/18/2023 12:07 PM CDT Jesse Wade MD LAB - PATHOLOGY/CYTO LOGY ORDERABLES DERMATOPATHOLOGY LABORATORY [facility] - Department of Dermatology [address], [address] [phone] documented in this encounter Visit Diagnoses Diagnosis Neoplasm of uncertain behavior of skin Actinic keratosis documented in this encounter
--- OUTSIDE RECORDS SUMMARY | 2024-06-02 08:19 | XMS_ITS | Referral Summary ---
Author Organization [facility] Address [address] [place] [address] Care Team Providers Care Occupational Therapy Technician Name Role Phone Shakir Moody DO Primary Care Provider [phone] Allergies No known active allergies Medications levothyroxine (SYNTHROID) 50 mcg tabletIndicatio ns:hypothyroidi sm Take 1 tablet (50 mcg total) by mouth oyster sorter before breakfast 0 Active simvastatin (ZOCOR) 20 mg tabletIndicatio ns:hyperlipidem ia Take 1 tablet (20 mg total) by mouth nightly 0 Active NIFEdipine CC 30 mg 24 hr tabletIndicatio ns:vascular dialator, HTN Take 1 tablet (30 mg total) by mouth every morning 0 Active multivitamin capsuleIndicati ons:Vitamin Deficiency Prevention Take 1 capsule by mouth every morning Men's multivitamin Active magnesium gluconate 200 mg tabletIndicatio ns:supplement Take 1.25 tablets (250 mg total) by mouth every evening Active cyanocobalamin (Vitamin B-12) 500 mcg tabletIndicatio ns:Prevention of Vitamin B12 Deficiency Take 1 tablet (500 mcg total) by mouth every evening Active Active Problems Problem Noted Date Diagnosed Date Myelopathy 10/18/2023 Polyneuropathy 01/12/2023 Raynaud's syndrome 05/17/2022 Prediabetes 05/17/2022 Leg pain, bilateral 05/17/2022 Hypothyroidism 05/17/2022 Hypertension 05/17/2022 Hyperlipidemia 05/17/2022 Abnormal EKG 05/17/2022 Immunizations Immunization Administration Dates Next Due Influenza, Quad, Adjuvantate d, Intramuscular 12/13/2022 Influenza, Quadrivalent, Hig h Dose, Preservative Free, Intrr 12/12/2021,12/06/2020 Influenza, Trivalent, Adjuva nted, Intramuscular 12/16/2018 Influenza, Trivalent, High D ose, Split, Preservative Free, Intramuscular 12/10/2017,12/29/2015,12/04/2014 Influenza, Trivalent, Preser vative Free, Intramuscular 12/02/2019 Pneumococcal Conjugate PCV 13 08/07/2018 Pneumococcal Polysaccharide PPV23 12/01/2013 ZOSTER LIVE 01/13/2015 ZOSTER Recombinant 10/25/2018,08/26/2018 Social History Tobacco Use Types Packs/Day Years Used Date Smoking Tobacco: Never Smokeless Tobacco: Never Tobacco Cessation:Counseling Given: Not Answered AUDIT-C Answer Date Recorded Q1: How often do you have a drink containing alc ohol? 2-3 times a week 12/12/2023 Q2: How many drinks containi ng alcohol do you have on a typical day when you are drinking? 1 or 2 12/12/2023 Q3: How often do you have si x or more drinks on one occasion? Never 12/12/2023 Personal Safety Answer Date Recorded Have you ever been in or are you currently in a harmful physical or emotional relationship or is someone making you feel afraid or unsafe? Denies 12/19/2023 Sex and Gender Information Value Date Recorded Sex Assigned at Not on file Legal Sex Male 4:48 PM CDT Gender Identity Not on file Sexual Orientation Not on file Last Filed Vital Signs Vital Sign Reading Time Taken Comments Blood Pressure 149/83 02/22/2024 12:50 PM ELECTRONIC INSTALLER Pulse 80 02/22/2024 12:50 PM ELECTRONIC INSTALLER Temperature 36 C (96.8 F) 12/19/2023 10:45 AM CDT Respiratory Rate 17 12/19/2023 12:10 PM CDT Oxygen Saturation 100% 12/19/2023 12:10 PM CDT Inhaled Oxygen Concentration - - Weight 84.8 kg (187 lb) 02/22/2024 12:50 PM ELECTRONIC INSTALLER Height 182.9 cm (6') 02/22/2024 12:50 PM ELECTRONIC INSTALLER Body Mass Index 25.36 02/22/2024 12:50 PM ELECTRONIC INSTALLER Plan of Treatment Not on file Medical Devices Implanted Type Area Ammunition Assembly Laborer Device Identifier Shelf Expiration Date Model / Serial / Lot Plate Plate N/A: Mouth [employer] Angio-Seal Vip 6fr Closere Device [id number] - [id number] Implanted:Qty: 1 on 12/19/2023 by Peter Soto MD at [facility] [employer] 07/01/2024 [id number] / / [id number] Insurance [facility] MEDICARE AETNA MEDICARE Advance Directives For more information, please contact: [phone] Documents on File Type Date Recorded Patient Study Abroad Advisor Expl anation ADVANCE DIRECTIVE 12/17/2023 5:14 PM POWER OF CRISIS COUNSELOR-MEDICAL * Full Code (Latest Code Status on File) Date Activated Date Inactivated Comments 12/19/2023 7:22 AM 12/20/2023 5:27 AM Care Teams Occupational Therapy Technician Relationship Specialty Start Date End Date Shakir Moody DO PCP - General Internal Medicine 12/07/22
--- OUTSIDE RECORDS SUMMARY | 2024-06-02 08:19 | XMS_ITS | CONTINUITY OF CARE DOCUMENT ---
Author Name csico peck Address Unknown Organization [facility] Address [address] [place] [address] Phone [phone] Care Team Providers Care Boiler Inspector Name Role Phone Rachid Matthews MD Unavailable [phone] JUAN CARLOS SCHNEIDER DO Unavailable [phone] JUAN CARLOS SCHNEIDER DO Unavailable [phone] PROBLEMS Condition Status Date Provider Notes Cardiology examination active aRchid Chung Hyperlipidemia active Rachid Matthews MD Hypertension active Rachid Matthews MD Hypothyroidism active Rachid Matthews MD Prediabetes active Rachid Matthews MD Leg pain, bilateral active Rachid Matthews MD Raynaud's syndrome active Rachid Matthews MD Abnormal EKG active Katty Eisenberg ENCOUNTERS Date Type Provider Location Encounter Diag nosis 05/17 - 05/19 In-person encounter Office Visit Rachid Matthews MD [place] [facility] Cardiology examinationHyperlipidemiaHypertensionHypothyroidismP rediabetesLeg pain, bilateralRaynaud's syndromeAbnormal EKG VITAL SIGNS Date Observation Value Provider Body Mass Index (Ratio) 26.50 kg/m2 Ayesha Eisenberg blood pressure, diastolic 80 mm[Hg] Pat nkLogsean blood pressure, systolic 159 mm[Hg] Latosha Shepherd blood pressure, diastolic 80 mm[Hg] Jomar Delarosa blood pressure, systolic 159 mm[Hg] She craig Delarosa pulse rate 83 /min Noemí Delarosa respiratory rate E&M 20 /min Noemí Delarosa oxygen saturation, oximetry 99 % Noemí Delarosa blood pressure, cuff size regular Jomar Delarosa height E&M 71 [in_i] Noemí Delarosa weight E&M 190 [lb_av] Noemí Delarosa HISTORY OF MEDICATION USE Medication Status Instructions Dates Provider Indications Com ments simvastatin 20 mg tablet active Noemí Delarosa levothyroxine 50 mcg tablet active Noemí Delarosa nifedipine 30 mg tablet extended release active Noemí Delarosa SOCIAL HISTORY Date Observation Value Provider social history E&M S moking History: Debra urban has never smoked. Rachid Matthews MD social history reviewed E&M reviewed - no changes required Rachid Matthews MD smoking status Never smoker Noemí Delarosa FAMILY HISTORY Family Member Condition Father Family History of Co ngestive Heart Failure: INSURANCE PROVIDERS Payer name Policy type / Coverage type [place] red green party ID AETNA MEDICARE [place] PPO Commercial insurance co mpany [id number] ADVANCE DIRECTIVES Name Date DISCUSSED - NO DECISION MADE TREATMENT PLAN Date Name Performer [id number],C,T he pt complaing of numbness and burning in the feet, does not get worse with walking. Pt denies chest pain and SOB. Risk factors of HTN, hyperlipidemia, prediabetes. He has Raynaud's symptoms in his hands that responded well to nifedipine. Family hx of CHF. 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 EKG shows diffuse ST depresssion. Will obtain detailed MISAEL. I also recommend an echo and stress test. Katty Pinedojagdeep [id number],C,. Pt denies chest pain and SOB. Risk factors of HTN, hyperlipidemia, prediabetes. Family hx of CHF. EKG shows diffuse ST depresssion. I recommend an echo and stress test. Katty Pinedojagdeep [id number],C,T he pt complaing of numbness and burning in the feet, does not get worse with walking. . 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 Will obtain detailed MISAEL. Katty Eisenberg [id number],C, B P today: 159/80 His updated medication list for this problem includes: Nifedipine 30 Mg Tablet Extended Release (Nifedipine) Rachid Matthews MD [id number],C, H is updated medication list for this problem includes: Simvastatin 20 Mg Tablet (Simvastatin) Rachid Matthews MD [id number],C, H is updated medication list for this problem includes: Levothyroxine 50 Mcg Tablet (Levothyroxine) Rachid Matthews MD Cardiology:The pt co mplaing of numbness and burning in the feet, does not get worse with walking. Pt denies chest pain and SOB. Risk factors of HTN, hyperlipidemia, prediabetes. He has Raynaud's symptoms in his hands that responded well to nifedipine. Family hx of CHF. 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 EKG shows diffuse ST depresssion. Will obtain detailed MISAEL. I also recommend an echo and stress test. Katty Eisenberg Cardiology:. Pt gina es chest pain and SOB. Risk factors of HTN, hyperlipidemia, prediabetes. Family hx of CHF. EKG shows diffuse ST depresssion. I recommend an echo and stress test. Katty Eisenberg Cardiology:The pt co mplaing of numbness and burning in the feet, does not get worse with walking. . 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 Will obtain detailed MISAEL. Katty Eisenberg Cardiology: B P today: 159/80 His updated medication list for this problem includes: Nifedipine 30 Mg Tablet Extended Release (Nifedipine) Rachid Matthews MD Cardiology: H is updated medication list for this problem includes: Simvastatin 20 Mg Tablet (Simvastatin) Rachid Matthews MD Cardiology: H is updated medication list for this problem includes: Levothyroxine 50 Mcg Tablet (Levothyroxine) Rachid Mtathews MD Date Name Stress Exercise Card iolite Stress Routine Complete Echo Arterial Duplex Bi-L zackary EX HISTORY OF PROCEDURES Procedure Date Procedure Name Provider Procedure Notes S tatus EKG Rachid Matthews MD completed
--- OUTSIDE RECORDS SUMMARY | 2024-06-02 08:19 | XMS_ITS | Clinical Summary ---
Author Organization [facility] Address [address] [place] [address] Care Team Providers Care Television News Photographer Name Role Phone Shakir Moody DO Primary Care Provider [phone] Allergies No known active allergies Medications levothyroxine (SYNTHROID) 50 mcg tabletIndicatio ns:hypothyroidi sm Take 1 tablet (50 mcg total) by mouth form setter steel pan forms before breakfast 0 Active simvastatin (ZOCOR) 20 [...] 12/01/2013 ZOSTER LIVE 01/13/2015 ZOSTER Recombinant 10/25/2018,08/26/2018 Surgical History Surgery Date Site/Laterality Comments TRANSURETHRAL RESECTION OF BLADDER 03/19/2018 - 03/18/20 19 TRANSURETHRAL RESECTION OF PROSTATE 03/19/2013 - 014 CATARACT EXTRACTION 12/11/2023 Right Medical History Medical History Date Comments Hypothyroidism Hyperlipidemia Family History Medical History Relation Name Comments Anesthesia problems Neg Hx Malig Hyperthermia Neg Hx Pseudochol deficiency Neg Hx Social History Tobacco Use Types Packs/Day Years [...] on file Sexual Orientation Not on file Obstetrics History Last Filed Vital Signs Vital Sign Reading Time Taken Comments Blood Pressure 149/83 02/22/2024 12:50 PM 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 Pulse 80 02/22/2024 12:50 PM 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 Temperature 36 C (96.8 F) 12/19/2023 10:45 AM CDT Respiratory Rate 17 12/19/2023 12:10 PM CDT Oxygen Saturation 100% 12/19/2023 12:10 PM CDT Inhaled Oxygen Concentration - - Weight 84.8 kg (187 lb) 02/22/2024 12:50 PM 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 Height 182.9 cm (6') 02/22/2024 12:50 PM 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 Body Mass Index 25.36 02/22/2024 12:50 PM 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 Plan of Treatment Health Maintenance Due Date Last Done Comments Depression Screening 1945 Hepatitis C Screening 1945 DTaP/Tdap/Td Vaccine (1 - Tdap) 1957 Hepatitis B Screening 1963 Well Visit 65+ 2011 Covid-19 Vaccine (2023-2 5 season) 2023 12/25/2022, 01/03/2022, 07/26/2021, Additional history exists Influenza Vaccine (#1) 2023 , 12/12/2021, 12/06/2020, Additional history exists Fall Risk Assessment 12/18/2024 12/19/2023 Pneumococcal vaccine 65+ Completed 08/07/2018, 11/17 Zoster Vaccine Completed 10/25/2018, 08/17, 01/13/2015 Medical Devices Implanted Type Area Supervisor Contact Lens Device Identifier Shelf Expiration Date Model / Serial / Lot Plate Plate N/A: Mouth [employer] Angio-Seal Vip 6fr Closere Device [id number] - [id number] Implanted:Qty: 1 on 12/19/2023 by Peter Soto MD at [facility] [employer] 07/01/2024 [id number] / / [id number] Insurance AETNA MEDICARE [facility] MEDICARE Advance Directives For more information, please contact: [phone] Documents on File Type Date Recorded Patient Leather Toggler Expl anation ADVANCE DIRECTIVE 12/17/2023 5:14 PM POWER OF GUEST RELATIONS AGENT-MEDICAL * Full Code (Latest Code Status on File) Date Activated Date Inactivated Comments 12/19/2023 7:22 AM 12/20/2023 5:27 AM Care Teams Television News Photographer Relationship Specialty Start Date End Date Shakir Moody DO PCP - General Internal Medicine 12/07/22
--- OUTSIDE RECORDS SUMMARY | 2024-06-02 08:19 | XMS_ITS | Encounter Summary ---
Author Organization [facility] Address [address] [place] [address] Care Team Providers Care Security Solutions Architect Name Role Phone Unavailable Primary Care Provider Unavailabl e Encounter Details Date Type Department Care Team (Late st Contact Info) Description 04/03/2019 Lab Requisition [facility] [address] [place] [id number] Dominguez Ho MD [address] [place] [address] Social History Tobacco Use Types [...] Priority Date/Time Associated Diagnosis Comments DERMATOPATHOLOGY Routine 04/02/2019 12:0 0 AM COBBLER APPRENTICE documented in this encounter Results * DERMATOPATHOLOGY (04/02/2019 12:00 AM COBBLER APPRENTICE) Case Report Dermatopathology Report Case: [id number] Authorizing Provider: Dominguez Ho MD Collected: 04/02/2019 12:00 AM Ordering Location: [facility] Received: 04/03/2019 12:35 PM Pathologist: Brooklyn Vickers MD Specimen: Skin, right occipital lower scalp 0 1:25 PM COBBLER APPRENTICE DERMATOPATHOLOGY LABORATORY Final Diagnosis Specimen A. SKIN, right occipital lower scalp: BASAL CELL CARCINOMA, MORPHEAFORM TYPE (C44.41) (see microscopic description) 0 1:25 PM COBBLER APPRENTICE DERMATOPATHOLOGY LABORATORY Clinical History R/O SCC, BCC. 0 1:25 PM COBBLER APPRENTICE DERMATOPATHOLOGY LABORATORY Gross Description Specimen A: Received is one formalin filled container labeled with the patient's name and designated right occipital lower scalp. The specimen consists of a punch biopsy measuring [id number], bisected. Jar 0. 0 1:25 PM COBBLER APPRENTICE DERMATOPATHOLOGY LABORATORY Microscopic Description Specimen A. SKIN, right occipital lower scalp: Sections show narrow elongated strands of basaloid cells within a densely collagenous stroma. The tumor cells are highlighted by an immunostain for Rahul-EP4. A dual immunostain for pancytokeratin and S100 fails to demonstrate perineural invasion by tumor. 0 1:25 PM COBBLER APPRENTICE DERMATOPATHOLOGY LABORATORY Disclaimer An external and internal positive and negative controls are appropriate for the histochemical, immunohistochemical and immunofluorescence stain(s) in this case (if any), except where stated explicitly. The performance characteristics of the stain(s) cited in this report were developed and its performance characteristic determined by the Dermatopathology Laboratory at [facility], directed by Dr. Kerry Walden. These tests need not be, and therefore are not, approved by the [place] Food and Drug Administration. The tests are used for clinical purposes. Billing Codes Specimen Charges Stain Charges 13061 1 95848 26518 1 1 0 1:25 PM COBBLER APPRENTICE DERMATOPATHOLOGY LABORATORY Embedded Images 0 1:25 PM COBBLER APPRENTICE DERMATOPATHOLOGY LABORATORY Pathology/Cytolog y TISSUE SPECIMEN FROM SKIN / Unknown 04/02/2019 04/03/2019 12:35 PM COBBLER APPRENTICE Dominguez Ho MD LAB - PATHOLOGY/CYTO LOGY ORDERABLES DERMATOPATHOLOGY LABORATORY [facility] - Department of Dermatology [address] [place] [address], [address] [place] [address], [facility] [phone] documented in this encounter Visit Diagnoses Not on filedocumented in this encounter
--- OUTSIDE RECORDS SUMMARY | 2024-06-02 08:19 | XMS_ITS | Patient Health Summary ---
Author Organization [facility] Address [address] [place] [address] Care Team Providers Care Engineering Intern Name Role Phone Unavailable Primary Care Provider Unavailabl e Note from [facility],non-owned Affiliates and Associated Physician Practices is amultiple site organization consisting of ambulatory clinics and hospital sitesin [place], [place]. This disclosure is being madepursuant to the Care Everywhere program and may not contain all information available regarding this patient. Last updated 17.[facility] Social History Tobacco Use Types Packs/Day Years Used Date Smoking Tobacco: Never Assessed Sex and Gender Information Value Date Recorded Sex Assigned at Not on file Gender Identity Not on file Sexual Orientation Not on file Procedures * DERMATOPATHOLOGY(Performed 07/17/2023) Performed for Neoplasm of uncertain behavior of skin, Actinic keratosis * DERMATOPATHOLOGY(Performed 05/09/2022) * DERMATOPATHOLOGY(Performed 04/05/2022) * DERMATOPATHOLOGY(Performed 04/02/2019) * DERMATOPATHOLOGY(Performed 03/20/2017) * DERMATOPATHOLOGY(Performed 06/13/2016) * DERMATOPATHOLOGY(Performed 02/03/2015) * CULTURE URINE(Performed 09/18/2013) * DERMATOPATHOLOGY(Performed 04/14/2010) Results * DERMATOPATHOLOGY (07/17/2023 3:33 AM CDT) Only the most recent of8 resultswithin the time period is included. Case Report Dermatopathology Report Case: [id number] Authorizing Provider: Jesse Wade MD Collected: 07/17/2023 03:33 AM Ordering Location: [facility] - Received: 07/18/2023 12:07 PM DermPath Lab Pathologist: Lina Encinas MD Specimen: Skin, left shoulder 2:04 PM CDT DERMATOPATHOLOGY LABORATORY Final Diagnosis Specimen A. SKIN, left shoulder: PIGMENTED SEBORRHEIC KERATOSIS (L82.1) 4 2:04 PM T DERMATOPATHOLOGY LABORATORY Clinical History Dysplastic Nevus 4 2:04 PM CDT DERMATOPATHOLOGY LABORATORY Gross Description Specimen A: Received is one formalin filled container labeled with the patient's name and designated left shoulder. The specimen consists of a shave biopsy measuring 3x3x1 mm. Jar 0. 4 2:04 PM CDT DERMATOPATHOLOGY LABORATORY Microscopic Description Specimen A. SKIN, left shoulder: Sections show an acanthotic lesion composed of relatively uniform keratinocytes. There is hyperkeratosis and pseudo horn cysts. Pigment is present in the keratinocytes composing this tumor. 2:04 PM T DERMATOPATHOLOGY LABORATORY Disclaimer An external and internal positive and negative controls are appropriate for the histochemical, immunohistochemical and immunofluorescence stain(s) in this case (if any), except where stated explicitly. The performance characteristics of the stain(s) cited in this report were developed and its performance characteristic determined by the Dermatopathology Laboratory at [facility], directed by Dr. Kerry Walden. These tests need not be, and therefore are not, approved by the [place] Food and Drug Administration. The tests are used for clinical purposes. Billing Codes Specimen Charges Stain Charges 49998 1 4 2:04 PM CDT DERMATOPATHOLOGY LABORATORY Embedded Images 4 2:04 PM CDT DERMATOPATHOLOGY LABORATORY Pathology/Cytolo gy TISSUE SPECIMEN FROM SKIN / Unknown 07/17/2023 3:33 AM CDT 07/18/2023 12:07 PM CDT Jesse Wade MD LAB - PATHOLOGY/CYTO LOGY ORDERABLES DERMATOPATHOLOGY LABORATORY [facility] - Department of Dermatology [address], [address] [phone] * (ABNORMAL) CULTURE URINE (09/18/2013 10:38 AM CDT) Culture Urine COAG NEG STAPH SPECIES(A) [facility] Comment:100,000 CFU/ML Coagu lase Neg Staph Species Urine specimen (specimen) URINE SPECIMEN OBTAINED BY CLEAN CATCH PROCEDURE / Unknown 09/18/2013 10:38 AM CDT 09/18/2013 9:44 PM CDT Narrative [facility] - 09/20/2013 10:42 AM CDT QamarSpecimen#[id number] Qamar Loc/Rm/Bed: EXPCARE C// CLN CATCH U Historical Provider LAB - MICROBIOLOG Y ORDERABLES [facility] [address] [phone]
--- OUTSIDE RECORDS SUMMARY | 2024-06-02 08:19 | XMS_ITS ---
Author Organization [facility] Address [address] [place] [address] Phone Care Team Providers Care Senior Games Technician Name Role Phone Unavailable Unavailable Unavailable Plan of Treatment No Plan of Treatment Recorded Assessments Includes: Assessments for all patient encounters Findings Encounter Date Basal cell carcinoma of the skin of the scalp PAIN MANAGEMENT NEW CONSULT with REGI SANTORO MD 06/07/2022 Last Documented On 3 6:22PM ; [facility] Pain in thoracic spine PAIN MANAGEMENT NEW CONSU LT with REGI SANTORO MD 06/07/2022 Last Documented On 3 6:22PM ; [facility] Peripheral neuropathy of bot h lower limbs PAIN MANAGEMENT NEW CONSULT with REGI SANTORO MD 06/07/2022 Last Documented On 3 6:22PM ; [facility] Personal history of bladder cancer PAIN MANAGEMENT NEW CONSULT with REGI SANTORO MD 06/07/2022 Last Documented On 3 6:22PM ; [facility] Wedge compression fracture o f T5-T6 vertebral body PAIN MANAGEMENT NEW CONSULT with REGI SANTORO MD 06/07/2022 Last Documented On 3 6:22PM ; [facility] Medical Equipment - Implanted Devices Includes: Current and historical Devices No Medical Equipment Recorded Medications Includes: Current and historical Medications Current Medications (continue as prescribed) Simvastatin 20 MG Oral Tablet 06/07/2022 Provider: Diagnosis: Last Documented On 06/07/2022 2:26PM By Virgilio PITTMAN ; [facility] Levothyroxine Sodium 50 MCG Oral Capsule 06/07/2022 Provider: Diagnosis: Last Documented On 06/07/2022 2:26PM By Virgilio PITTMAN ; [facility] NIFEdipine ER 30 MG Oral Tablet Extended Release 24 Ho ur 06/07/2022 Provider: Diagnosis: Last Documented On 06/07/2022 2:27PM By Virgilio PITTMAN ; [facility] traMADol HCl 50 MG Oral Tablet 06/07/2022 Provider: Diagnosis: Last Documented On 06/07/2022 2:28PM By Virgilio PITTMAN ; [facility] Medications Administered Includes: Administered Medications in patient's chart No Administered Medications Recorded Results Includes: Results from 06/03/2023 through 06/02/2024 No Results Recorded For Specified Dates History of Present Illness History of Present Illness not supported for this document type No History of Present Illness Recorded Social History Description Last Updated No recent change in sleep 06/07/2022 Last Documented On 3 6:22PM ; [facility] Alcohol 06/07/2022 Last Documented On 3 6:22PM ; [facility] Amount of alcohol per day: 0-1 3 Last Documented On 3 6:22PM ; [facility] Difficulty walking 06/07/2022 Last Documented On 3 6:22PM ; [facility] Not using drugs 06/07/2022 Last Documented On 3 6:22PM ; [facility] Smoking Status Unknown Medical History Includes: Medical History in patient's chart Description Last Updated Denies a fear of falling. 06/07/2022 Last Documented On 3 6:22PM ; [facility] Has had a fall in the last 1 2 months. May FELL AT [facility] [place] 06/07/2022 Last Documented On 3 6:22PM ; [facility] Blood pressure was high 06/07/2022 Last Documented On 3 6:22PM ; [facility] Hypertension 06/07/2022 Last Documented On 3 6:22PM ; [facility] No exposure to a contagious disease 05/18 Last Documented On 3 6:22PM ; [facility] No previous psychiatric treatment 2022 Last Documented On 3 6:22PM ; [facility] Not taking OTC medications 06/07/2022 Last Documented On 3 6:22PM ; [facility] Taking medication for high blood pressur e 06/07/2022 Last Documented On 3 6:22PM ; [facility] CT/MRI 05-30-2022. spine 06/07/2022 Last Documented On 3 6:22PM ; [facility] Currently wearing eyeglasses 06/07/2022 Last Documented On 3 6:22PM ; [facility] Please list all illnesses/co nditions you have been diagnosed with: Skin cancerbladder cancer pre diabetescholesterol blood pressu 06/07/2022 Last Documented On 3 6:22PM ; [facility] Please list all surgeries: Turp 2015blad moises cancer 2020 06/07/2022 Last Documented On 3 6:22PM ; [facility] Severe Pain 06/07/2022 Last Documented On 3 6:22PM ; [facility] X-rays 05-30-2022. ribs 06/07/2022 Last Documented On 3 6:22PM ; [facility] Family History Includes: Family History in patient's chart Description Last Updated Paternal history of family history of is chemic heart disease 06/07/2022 Last Documented On 3 6:22PM ; [facility] Review of Systems Review of Systems not supported for this document type No Review of Systems Recorded Mental Status No Mental Status Recorded Functional Status No Functional Status Recorded Physical Exam Physical Exam not supported for this document type No Physical Exam Recorded Allergies Includes: Active, inactive, and resolved Allergies No Known Allergies Insurance Includes: Active Insurance Policies Plan Name Member ID Group # Subscriber Relationship Effect kasey Dates 1 - [employer] [id number] JIMBO D JILLIAN Self 2 - [employer] [id number] JIMBO D JILLIAN Self Clinical Notes Includes: Signed Clinical Notes starting from 04/07/2022 No Clinical Notes Recorded
--- OUTSIDE RECORDS SUMMARY | 2024-06-02 08:19 | XMS_ITS | Referral Summary ---
Author Organization [facility] Address [address] [place] [address] Care Team Providers Care Dye Machine Tender Name Role Phone Unavailable Primary Care Provider Unavailabl e Source Comments [facility],non-owned Affiliates and Associated Physician Practices is amultiple site organization consisting of ambulatory clinics and hospital sitesin [place], [place], [place] and [place]. This disclosure is being madepursuant to the Care Everywhere program and may not contain all information available regarding this patient. Last updated 17.[facility] Social History Tobacco Use Types Packs/Day Years Used Date Smoking Tobacco: Never Assessed Sex and Gender Information Value Date Recorded Sex Assigned at Not on file Gender Identity Not on file Sexual Orientation Not on file Plan of Treatment Not on file
--- OUTSIDE RECORDS SUMMARY | 2024-06-02 08:20 | XMS_ITS | Clinical Summary ---
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 JUAN CARLOS MOODY FOR ACUTE T5 COMPRESSION FX. MAY 30--FELLAT [facility] [employer] [facility] IN [place]. FEET WENT UP IN THE AIR AND FELL FLAT ON BACK. WENT TO ER AT [facility]. GOT CT XRAY. PT GOT DILADID FROM HOSPITAL. DID HELP. 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 Although there was a traumatic event associated with his T5 compression fracture, imaging finding of which is consistent with examination and description of symptoms, development of a spinal fracture with a fall from ground level suggests at least the possibility of intra-osseous process. Additional workup should be performed to assess for hypogonadism and secondary osteopenia/osteoporosis. In the absence of evidence for demineralization, given a at least a history of multiple neoplasms and additional evaluation should be considered for a possible paraneoplastic syndrome along with NCV/EMG to rule out possible length dependent, axonal process, despite low likely yield. Given lack of significant diagnosis that would create high likelihood of nonunion, I would wait an additional 4 to 6 weeks before considering invasive vertebral augmentation especially given the fact the patient's pain is improving and reasonably controlled with medications and is not at risk for admission for pain control. Although his activity is reasonably limited at this point to allow for convalescence, he is not so impaired that immediate intervention is necessary. However, should his pain persist or progress after 4 to 6 weeks of recovery, we can then consider vertebral augmentation likely in combination with intraosseous core biopsy to rule out malignancy or other intraosseous process. At that time, we would also obtain MRI to confirm acute fracture and lack of involvement of the posterior elements as well as no evidence of discrete lesion. In the interim, patient will continue conservative management. We discussed at length topical lidocaine patches to reduce pain in conjunction with ongoing oral analgesics. Can consider bracing with TLSO although the patient's pain is improving and this may be necessary. I will schedule follow-up in 4 weeks to reassess. Patient can certainly cancel his appointment if his pain improves expectantly. - Last Documented On 06/07/2022 6:22PM ; [facility] Pending Tests Order Diagnosis Results Due Ordering P rovider Radiology @ other DEXA (to be scheduled) Wedge comprsn fx T5-T6 vertebra, subs for fx w routn heal 06/21/22 REGI SANTORO MD Last Documented On 4:11PM ; [facility] Assessments Includes: Assessments from this encounter Findings - [S22.050D - Wedge compression fracture of T5-T6 vertebra, subsequent encounter for fracture with routine healing] Wedge compression fracture of T5-T6 vertebral body - Last Documented On 06/07/2022 6:22PM ; [facility] - [M54.6 - Pain in thoracic spine] Pain in thoracic spine - Last Documented On 06/07/2022 6:22PM ; [facility] - [G62.9 - Polyneuropathy, unspecified] Peripheral neuropathy of both lower limbs - Last Documented On 06/07/2022 6:22PM ; [facility] - [C44.41 - Basal cell carcinoma of skin of scalp and neck] Basal cell carcinoma of the skin of the scalp - Last Documented On 06/07/2022 6:22PM ; [facility] - [Z85.51 - Personal history of malignant neoplasm of bladder] Personal history of bladder cancer - Last Documented On 06/07/2022 6:22PM ; [facility] Medical Equipment - Implanted Devices Includes: Current Devices No Medical Equipment Recorded Medications Includes: Medications discussed during this encounter and other current Medications Current Medications (continue as prescribed) Simvastatin 20 MG Oral Tablet 06/07/2022 Provider: Diagnosis: Last Documented On 06/07/2022 2:26PM By Virgilio PITTMAN ; [facility] Levothyroxine Sodium 50 MCG Oral Capsule 06/07/2022 Provider: Diagnosis: Last Documented On 06/07/2022 2:26PM By Virgilio PITTMAN ; [facility] NIFEdipine ER 30 MG Oral Tablet Extended Release 24 Ho ur 06/07/2022 Provider: Diagnosis: Last Documented On 06/07/2022 2:27PM By Virgilio PITTMAN ; [facility] traMADol HCl 50 MG Oral Tablet 06/07/2022 Provider: Diagnosis: Last Documented On 06/07/2022 2:28PM By Virgilio PITTMAN ; [facility] Medications Administered Includes: Administered Medications from this encounter No Administered Medications Recorded Vital Signs Includes: Vital Signs from this encounter Vital Name 06/07/2022 02:28P Blood Pressure Sitting L 167/85 BP Cuff Size Regular Pulse Rate-Sitting (bpm) 73 Temp-Oral (F) 96.9 Weight (lb) 190 Pain Level 0 Oxygen Saturation (%) 73 Last Documented: On 06/07/2022 2:31PM ; [facility] Results Includes: Results discussed during this encounter No Results Recorded For Specified Dates History of Present Illness Includes: History of Present Illness from this encounter HPI PHQ-9 Score: 1 Date:06-07-22BPI Score: Date:MiDAS Score: Date:SOAPP-R Score: 3 LOW Date:[id number] Location: RT LOWER BACK MID ABOVE THE BELT LINEQuality: STABBING KNIFE, TAKES BREATH AWAY , MUSCLE SPASAMS SHARPRadiation: NO RADIATIONSeverity: SEVERETiming: COMES AND GOESAssociated Sx: Aggravating Factors:LAUGHING, TWISTING BENDING, IN AND OUT OF CAR, GETTING UP AND DOWN, COUGHAlleviating Factors:TRAMADOL IBUPROFEN, Past Tx: NONE JIMBO WALSH is a 77 year old male. - Allergy list reviewed - Problem list reviewed - Medication reconciliation performed - Medication list reviewed - Last dose of medication? 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 He has been referred to my office for evaluation of a potentially completely separate issue of acute/subacute mid to lower thoracolumbar back pain on the right side following a significant fall at a bowling alley in [place], [place], on May 30, 2022. Patient describes bowling with his family and slipping on a wet area of the floor, falling hard and landing flat on his back with immediate pain. He describes losing his breath and been unable to move for several minutes until he recovered. He develop significant mid to low back pain radiating to the left flank. He did drive home but then was driven to the emergency department by his . X-ray performed at that time revealed no evidence of refracture but significance of superior endplate fracture at T5. CT scan was in performed which showed superior endplate compression but no other injury noted. His pain has improved but only modestly since his injury over one week ago. He denies new neurologic deficit. He denies sensory change or motor weakness. He denies bowel or bladder control issues. Of note, the patient indicates he had is testosterone evaluated 10 to 12 years ago and was on the lower edge of normal. He denies any recent evaluation of this since then. He has not been diagnosed with or told that he has osteopenia or osteoporosis. Of note, he does have a history of basal cell/squamous cell carcinoma of the scalp and bladder tumors with carcinoma in situ but these are relatively low risk for bone metastasis and were apparently noninvasive. There is no evidence of intraosseous lesions on CT scan. His complaints of lower extremity paresthesias have been evaluated with ankle brachial indices which shows no evidence of significant blood flow compromise or ischemia. NCV/EMG has been considered. Patient denies edema, discoloration or temperature change, nor does he describe claudication, wasting, ulceration, pain with dependency or other signs of ischemia). He is not diabetic although he has been told in the past that he has borderline blood sugars. He has no other diagnoses that would predispose him to peripheral neuropathic pathology. Although there is at least some mild risk of a paraneoplastic syndrome that would potentially explain both lower extremity symptoms as well as compression fracture with otherwise normal bone density after a minor trauma (with possible lytic metastatic lesion of the spine), I think this is of low likely yield and will defer any additional evaluation to his primary care provider if Dr. Moody feels this work-up is both reasonable and appropriate. Otherwise, given the patient's modest improvement, mild limitation in activity tolerance, reasonably controlled pain with conservative measures, short duration of time since his injury, and lack of underlying diagnosis of osteopenia/osteoporosis or other confounding diagnosis, I believe he will likely improve spontaneously over the course of next 3 to 4 weeks. We will hold off on interventional therapies such as kyphoplasty for now unless the patient fails to improve. In the interim, however, I will obtain DEXA scan to assess for undiagnosed osteopenia/osteoporosis. We will obtain free and total testosterone levels to evaluate for potential hypogonadism given history of borderline low testosterone a decade in the past. If there is evidence of normal bone density, I would consider MRI of the thoracic spine to evaluate for occult intraosseous lesion. Furthermore, if the patient has persistent pain on follow up secondary to potential nonunion, we will obtain MRI of the thoracic spine to evaluate for persistent intraosseous edema which would be suggestive of a non-healed acute vertebral fracture. This would also allow us to rule out nerve root compromise and posterior element involvement and candidacy for minimally invasive percutaneous vertebral augmentation. Futhermore, if pain persists or worsens despite conservative efforts beyond a 4 to 6 week convalescent period , especially if the patient requires continued or escalating opioid management, we will consider percutaneous balloon assisted vertebral augmentation of T5 with core biopsy of the T5 vertebral body to rule out unlikely but possible metastatic lesion. Risks, benefits and alternatives the above treatment options were discussed in detail the patient who expressed explicit understanding and consent to proceed. Patient expressed appreciation and agreement with the above plan. Questions were elicited, asked and answered the best of our ability and to his satisfaction today. [place] prescription monitoring database was reviewed and found to be appropriate. No urine drug testing was performed today. Imaging: All relevant imaging available was personally reviewed with the patient today with the following tests and results noted: X-ray of the bilateral ribs dated May 30, 2022: mild anterior wedge deformity of an upper thoracic vertebral body, likely T5, new since the comparison film dated July 06, 2014. Otherwise no acute cardiopulmonary process. No acute abnormality detected in the ribs. CT scan of the thoracic spine dated May 30, 2022: normal alignment of the thoracic spine. Mild height loss at T5 with superior endplate deformity. No definite evidence of posterior cortex or posterior element involvement. Remaining vertebral body height are preserved. Multilevel degenerative disc disease. Evidence of coronary artery calcifications. EKG dated May 30, 2022:Sinus bradycardia with rate of 58 bpm. Left axis deviation with likely left atrial enlargement. T-wave inversion with possible ischemia. Intraventricular conduction delay. Normal QTc interval. Abnormal ECG. Social History Description Last Updated No recent change in sleep 06/07/2022 Last Documented On 3 6:22PM ; [facility] Alcohol 06/07/2022 Last Documented On 3 6:22PM ; [facility] Amount of alcohol per day: 0-1 3 Last Documented On 3 6:22PM ; [facility] Difficulty walking 06/07/2022 Last Documented On 3 6:22PM ; [facility] Not using drugs 06/07/2022 Last Documented On 3 6:22PM ; [facility] Smoking Status Unknown Procedures and Surgical History Includes: Procedures from this encounter Procedures Code Diagnosis Performing Provider Service L ocation Service Date use of tobacco assessment performed 1000F Last Documented On 3 2:14PM ; [facility] standardized depression screening: negative for symptoms 3351F Last Documented On 3 2:26PM ; [facility] review of medications documented 1160F Last Documented On 3 2:14PM ; [facility] screening for adult depression: impressi on and score one Last Documented On 3 2:26PM ; [facility] Clinical summary provided to patient Last Documented On 3 2:14PM ; [facility] SOAPP-R: total score 3 Last Documented On 3 2:14PM ; [facility] Medical History Includes: Medical History addressed during this encounter Description Last Updated Denies a fear of falling. 06/07/2022 Last Documented On 3 6:22PM ; [facility] Has had a fall in the last 1 2 months. May FELL AT [facility] IN [place] 06/07/2022 Last Documented On 3 6:22PM ; [facility] Blood pressure was high 06/07/2022 Last Documented On 3 6:22PM ; [facility] Hypertension 06/07/2022 Last Documented On 3 6:22PM ; [facility] No exposure to a contagious disease 05/18 Last Documented On 3 6:22PM ; [facility] No previous psychiatric treatment 2022 Last Documented On 3 6:22PM ; [facility] Not taking OTC medications 06/07/2022 Last Documented On 3 6:22PM ; [facility] Taking medication for high blood pressur e 06/07/2022 Last Documented On 3 6:22PM ; [facility] CT/MRI 05-30-2022. spine 06/07/2022 Last Documented On 3 6:22PM ; [facility] Currently wearing eyeglasses 06/07/2022 Last Documented On 3 6:22PM ; [facility] Please list all illnesses/co nditions you have been diagnosed with: Skin cancerbladder cancer pre diabetescholesterol blood pressu 06/07/2022 Last Documented On 3 6:22PM ; [facility] Please list all surgeries: Turp 2015blad moises cancer 2020 06/07/2022 Last Documented On 3 6:22PM ; [facility] Severe Pain 06/07/2022 Last Documented On 3 6:22PM ; [facility] X-rays 05-30-2022. ribs 06/07/2022 Last Documented On 3 6:22PM ; [facility] Family History Includes: Family History addressed during this encounter Description Last Updated Paternal history of family history of is chemic heart disease 06/07/2022 Last Documented On 3 6:22PM ; [facility] Review of Systems Includes: Review of Systems from this encounter Systemic: No systemic symptoms other then noted and no recent weight loss. Head: No head symptoms other then noted. Neck: No neck pain. Otolaryngeal: No otolaryngeal symptoms other than noted. Cardiovascular: No cardiovascular symptoms other than noted. Pulmonary: No pulmonary symptoms other than noted. Gastrointestinal: No difficulty chewing and no dysphagia. Genitourinary: No genitourinary symptoms other than noted. Endocrine: No endocrine symptoms other than noted. Hematologic: No easy bleeding and no tendency for easy bruising. Musculoskeletal: No musculoskeletal symptoms other than noted. Back pain. Neurological: No neurological symptoms other than noted. Dizziness. No fainting passing out with needles or medical procedures. Psychological: No sleep apnea. Skin: No skin symptoms other than noted. Mental Status Includes: Mental Status from this encounter No Mental Status Recorded Functional Status Includes: Functional Status from this encounter No Functional Status Recorded Physical Exam Includes: Physical Exam from this encounter Allergies Includes: Active Allergies No Known Allergies Encounters Encounter Provider Location Date Check-In Time Check-Out Time Diagnosis PAIN MANAGEMENT NEW CONSULT REGI SANTORO MD [facility] 06/08/19 23 1:55PM 3:10PM Neuropathy Lower Limb Peripheral Both,Fracture of T5-t6 Vertebral Body Wedge Compression,Do rsopathy Dorsalgia Pain in Thoracic Spine,Skin Neoplasm Scalp Malignant Basal Cell Carcinoma,Pers onal History of Bladder Cancer Insurance Includes: Active Insurance Policies Plan Name Member ID Group # Subscriber Relationship Effect [id number] Dates 1 - [employer] [id number] JIMBO D JILLIAN Self 2 - [employer] [id number] JIMBO D JILLIAN Self Clinical Notes Includes: Clinical Notes from this encounter * Progress note Date Encounter Last Documented by 06/07/2022 PAIN MANAGEMENT NEW CONSULT Last documented on 06/07/2022; 6:22 PM, REGI SANTORO MD; [facility] Chief Complaint The Chief Complaint is: REFERRED BY DR. JUAN CARLOS MOODY FOR ACUTE T5 COMPRESSION FX. MAY 30--[facility] [employer] [facility] IN [place]. FEET WENT UP IN THE AIR AND FELL FLAT ON BACK. WENT TO ER AT [facility]. GOT CT XRAY. PT GOT DILADID FROM HOSPITAL. DID HELP. NOT DIABETIC, NO PACEMAKER, NO STENTS, NO BLOOD THINNERS. History of Present Illness PHQ-9 Score: 1 Date:06-07-22 BPI Score: Date: MiDAS Score: Date: SOAPP-R Score: 3 LOW Date:06-07-22 Pain Location: RT LOWER BACK MID ABOVE THE BELT LINE Quality: STABBING KNIFE, TAKES BREATH AWAY , MUSCLE SPASAMS SHARP Radiation: NO RADIATION Severity: SEVERE Timing: COMES AND GOES Associated Sx: Aggravating Factors:LAUGHING, TWISTING BENDING, IN AND OUT OF CAR, GETTING UP AND DOWN, COUGH Alleviating Factors:TRAMADOL IBUPROFEN, Past Tx: NONE JIMBO WALSH is a 77 year old male. - Allergy list reviewed - Problem list reviewed - Medication reconciliation performed - Medication list reviewed - Last dose of medication? 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 He has been referred to my office for evaluation of a potentially completely separate issue of acute/subacute mid to lower thoracolumbar back pain on the right side following a significant fall at a bowling alley in [place], [place], on May 30, 2022. Patient describes bowling with his family and slipping on a wet area of the floor, falling hard and landing flat on his back with immediate pain. He describes losing his breath and been unable to move for several minutes until he recovered. He develop significant mid to low back pain radiating to the left flank. He did drive home but then was driven to the emergency department by his . X-ray performed at that time revealed no evidence of refracture but significance of superior endplate fracture at T5. CT scan was in performed which showed superior endplate compression but no other injury noted. His pain has improved but only modestly since his injury over one week ago. He denies new neurologic deficit. He denies sensory change or motor weakness. He denies bowel or bladder control issues. Of note, the patient indicates he had is testosterone evaluated 10 to 12 years ago and was on the lower edge of normal. He denies any recent evaluation of this since then. He has not been diagnosed with or told that he has osteopenia or osteoporosis. Of note, he does have a history of basal cell/squamous cell carcinoma of the scalp and bladder tumors with carcinoma in situ but these are relatively low risk for bone metastasis and were apparently noninvasive. There is no evidence of intraosseous lesions on CT scan. His complaints of lower extremity paresthesias have been evaluated with ankle brachial indices which shows no evidence of significant blood flow compromise or ischemia. NCV/EMG has been considered. Patient denies edema, discoloration or temperature change, nor does he describe claudication, wasting, ulceration, pain with dependency or other signs of ischemia). He is not diabetic although he has been told in the past that he has borderline blood sugars. He has no other diagnoses that would predispose him to peripheral neuropathic pathology. Although there is at least some mild risk of a paraneoplastic syndrome that would potentially explain both lower extremity symptoms as well as compression fracture with otherwise normal bone density after a minor trauma (with possible lytic metastatic lesion of the spine), I think this is of low likely yield and will defer any additional evaluation to his primary care provider if Dr. Moody feels this work-up is both reasonable and appropriate. Otherwise, given the patient's modest improvement, mild limitation in activity tolerance, reasonably controlled pain with conservative measures, short duration of time since his injury, and lack of underlying diagnosis of osteopenia/osteoporosis or other confounding diagnosis, I believe he will likely improve spontaneously over the course of next 3 to 4 weeks. We will hold off on interventional therapies such as kyphoplasty for now unless the patient fails to improve. In the interim, however, I will obtain DEXA scan to assess for undiagnosed osteopenia/osteoporosis. We will obtain free and total testosterone levels to evaluate for potential hypogonadism given history of borderline low testosterone a decade in the past. If there is evidence of normal bone density, I would consider MRI of the thoracic spine to evaluate for occult intraosseous lesion. Furthermore, if the patient has persistent pain on follow up secondary to potential nonunion, we will obtain MRI of the thoracic spine to evaluate for persistent intraosseous edema which would be suggestive of a non-healed acute vertebral fracture. This would also allow us to rule out nerve root compromise and posterior element involvement and candidacy for minimally invasive percutaneous vertebral augmentation. Futhermore, if pain persists or worsens despite conservative efforts beyond a 4 to 6 week convalescent period , especially if the patient requires continued or escalating opioid management, we will consider percutaneous balloon assisted vertebral augmentation of T5 with core biopsy of the T5 vertebral body to rule out unlikely but possible metastatic lesion. Risks, benefits and alternatives the above treatment options were discussed in detail the patient who expressed explicit understanding and consent to proceed. Patient expressed appreciation and agreement with the above plan. Questions were elicited, asked and answered the best of our ability and to his satisfaction today. [place] prescription monitoring database was reviewed and found to be appropriate. No urine drug testing was performed today. Imaging: All relevant imaging available was personally reviewed with the patient today with the following tests and results noted: X-ray of the bilateral ribs dated May 30, 2022: mild anterior wedge deformity of an upper thoracic vertebral body, likely T5, new since the comparison film dated July 06, 2014. Otherwise no acute cardiopulmonary process. No acute abnormality detected in the ribs. CT scan of the thoracic spine dated May 30, 2022: normal alignment of the thoracic spine. Mild height loss at T5 with superior endplate deformity. No definite evidence of posterior cortex or posterior element involvement. Remaining vertebral body height are preserved. Multilevel degenerative disc disease. Evidence of coronary artery calcifications. EKG dated May 30, 2022:Sinus bradycardia with rate of 58 bpm. Left axis deviation with likely left atrial enlargement. T-wave inversion with possible ischemia. Intraventricular conduction delay. Normal QTc interval. Abnormal ECG. Current Medication - Levothyroxine Sodium 50 MCG Oral Capsule 1 capsule daily 0 days, 0 refills - NIFEdipine ER 30 MG Oral Tablet Extended Release 24 Hour 1 capsule daily 0 days, 0 refills - Simvastatin 20 MG Oral Tablet 1 capsule daily 0 days, 0 refills - traMADol HCl 50 MG Oral Tablet One tablet four times a day 0 days, 0 refills Past Medical/Surgical History Reported: Please list all illnesses/conditions you have been diagnosed with: Skin cancerbladder cancer pre diabetescholesterol blood pressu and Please list all surgeries: Turp 2015bladder cancer 2020. Medical: No previous psychiatric treatment. Currently wearing eyeglasses, orthopedic history Left Knee Score mild pain Severe Pain, and Hypertension. Medications: Taking medication for high blood pressure. Not taking OTC medications. Tests: Blood pressure was high, X-rays 05-30-2022. ribs, and CT/MRI 05-30-2022. spine. Exposure: No exposure to a contagious disease. Physical Trauma: Has had a fall in the last 12 months. May FELL AT [employer] AT [facility] IN [place]. Denies a fear of falling. Social History Difficulty walking. Behavioral: Amount of alcohol per day: 0-1. Alcohol: Alcohol. Drug Use: Not using drugs. Habits: No recent change in sleep. Allergies - No Known Allergies Family History Paternal: Ischemic heart disease Review Of Systems Systemic: No systemic symptoms other then noted and no recent weight loss. Head: No head symptoms other then noted. Neck: No neck pain. Otolaryngeal: No otolaryngeal symptoms other than noted. Cardiovascular: No cardiovascular symptoms other than noted. Pulmonary: No pulmonary symptoms other than noted. Gastrointestinal: No difficulty chewing and no dysphagia. Genitourinary: No genitourinary symptoms other than noted. Endocrine: No endocrine symptoms other than noted. Hematologic: No easy bleeding and no tendency for easy bruising. Musculoskeletal: No musculoskeletal symptoms other than noted. Back pain. Neurological: No neurological symptoms other than noted. Dizziness. No fainting passing out with needles or medical procedures. Psychological: No sleep apnea. Skin: No skin symptoms other than noted. Physical Findings - Vitals taken 06/07/2022 02:28 pm BP-Sitting L 167/85 mmHg BP Cuff Size Regular Pulse Rate-Sitting 73 bpm Temp-Oral 96.9 F Weight 190 lbs Pain Level 0 Pain Level Note SITTING 8 ON MOVING Oxygen Saturation 73 % Psychiatric: Psychiatric: Value PHQ9 score: 1 HEENT: NC/AT. Anicteric. Clear Conjunctiva. PERRLA. MM's pink/moist. No lesions of nasal mucosa. No discharge via nares. No lesions of EAC. No discharge of EAC. No lesions of oropharynx. Oropharynx without erythema or exudate. Neck supple. No thyromegally. No palpable masses. No lymphadenopathy in cervical chain bilaterally. CVS: RRR. No murmurs. No gallops. No rubs. No peripheral edema. Peripheral pulses palpable in all extremities. Pulmonary: CTA bilaterally. No wheezes. No rales. No crackles. No rubs. Spine/MSK: Point tenderness over the T5/6 spinous process with positive percussion. Nontender over the erector spiny/multifidus muscles in the thoracolumbar lumbar. Nontender over the rib cage with negative compression test free from crepitance. Positive thoracic facet loading maneuver bilaterally with pain referring back to the mid thoracic spine.Mild mid to upper thoracic kyphosis mostly non-reversible. Gait: Not antalgic. No steppage gait. No Trendelenburg gait. No circumspected gait pattern. Heel walk normal. Toe walk normal. Tandem gait normal. Neuro: Awake. Alert. Oriented x3. DTR's intact in all extremities. DTR's equal in all extremities. No focal neurologic deficit. [id number] normal bilaterally. Babinski downgoing. Psych: No apparent distress. Mood normal. Affect normal. No pain behaviors. Tests Educational Testing: Questionnaires PHQ-9: Value SOAPP-R: total score 3 Assessment - [S22.050D - Wedge compression fracture of T5-T6 vertebra, subsequent encounter for fracture with routine healing] Wedge compression fracture of T5-T6 vertebral body - [M54.6 - Pain in thoracic spine] Pain in thoracic spine - [G62.9 - Polyneuropathy, unspecified] Peripheral neuropathy of both lower limbs - [C44.41 - Basal cell carcinoma of skin of scalp and neck] Basal cell carcinoma of the skin of the scalp - [Z85.51 - Personal history of malignant neoplasm of bladder] Personal history of bladder cancer Therapy - Clinical summary provided to patient. Plan StartCited - Wedge comprsn fx T5-T6 vertebra, subs for fx w routn heal Lab: Testosterone Radiology @ other: DEXA (to be scheduled) Instructions: [facility]: compression fracture in absence of diagnosis of osteopenia/osteoporosis EndCited Patient has no history of osteopenia/osteoporosis but does describe a history of noninvasive cancer of the scalp and bladder as well as new onset lower extremity paresthesias and a remote finding of borderline low testosterone level and borderline elevated blood sugar in the past. Although there was a traumatic event associated with his T5 compression fracture, imaging finding of which is consistent with examination and description of symptoms, development of a spinal fracture with a fall from ground level suggests at least the possibility of intra-osseous process. Additional workup should be performed to assess for hypogonadism and secondary osteopenia/osteoporosis. In the absence of evidence for demineralization, given a at least a history of multiple neoplasms and additional evaluation should be considered for a possible paraneoplastic syndrome along with NCV/EMG to rule out possible length dependent, axonal process, despite low likely yield. Given lack of significant diagnosis that would create high likelihood of nonunion, I would wait an additional 4 to 6 weeks before considering invasive vertebral augmentation especially given the fact the patient's pain is improving and reasonably controlled with medications and is not at risk for admission for pain control. Although his activity is reasonably limited at this point to allow for convalescence, he is not so impaired that immediate intervention is necessary. However, should his pain persist or progress after 4 to 6 weeks of recovery, we can then consider vertebral augmentation likely in combination with intraosseous core biopsy to rule out malignancy or other intraosseous process. At that time, we would also obtain MRI to confirm acute fracture and lack of involvement of the posterior elements as well as no evidence of discrete lesion. In the interim, patient will continue conservative management. We discussed at length topical lidocaine patches to reduce pain in conjunction with ongoing oral analgesics. Can consider bracing with TLSO although the patient's pain is improving and this may be necessary. I will schedule follow-up in 4 weeks to reassess. Patient can certainly cancel his appointment if his pain improves expectantly. Practice Management Use of tobacco assessment performed Review of medications documented; Standardized depression screening: negative for symptoms and for adult impression and score one. A total of 46 minutes were spent on this patient's evaluation, as above, with greater than 50% of this time spent in direct [id number] counseling and coordination of care. Results of this interaction were communicated directly to the patient's referring and/or primary care provider. All imaging studies and test results discussed in the above document were personally reviewed and evaluated by the performing provider. For all patients on acute or chronic opioids, ongoing need for opioid analgesia is assessed at each visit with consideration of discontinuation or wean to lowest effective dose when possible and appropriate. Contents of this document have been edited for correctness, but may be subject to typographical or electrification adviser errors. Verify all diagnoses, medications, dosages, and patient instructions with patient and/or the originator of this document. Health Reminders - Assess Tobacco Use satisfied 06/07/2022. - Depression Screening satisfied 06/07/2022. - Follow up plan for Depression Screening satisfied 06/07/2022.
[2024-06-02 13:56] LABS: Basophils Absolute Auto 0.1 K/mm3 (0.0-0.1); Basophils Percent Auto 1.6 % (0.2-1.2); Eosinophils Absolute Auto 0.1 K/mm3 (0-0.3); Eosinophils Percent Auto 1.6 % (0-4.4); Hematocrit 42.2 % (42.0-52.0); Hemoglobin 13.2 g/dL (14.0-18.0); Immature Granulocyte Absolute 0.01 K/mm3 (0.00-0.031); Immature Granulocyte Percent A 0.2 % (0-0.5); Lymphocytes Absolute Auto 1.98 K/mm3 (0.9-3.2); Lymphocytes Percent Auto 40.3 % (18.3-44.2); Mean Corpuscular HGB Conc 31.3 g/dl (32-36); Mean Corpuscular Hemoglobin 28.2 pg (26-34); Mean Corpuscular Volume 90.2 fl (80-100); Mean Platelet Volume 10.6 fl (7.4-10.4); Monocytes Absolute Auto 0.4 K/mm3 (0.1-0.6); Neutrophils Absolute Auto 2.3 K/mm3 (1.3-6.7); Neutrophils Percent Auto 47.3 % (45.5-73.1); Platelet Count Result 272 k/mm3 (150-375); Red Blood Count 4.68 M/mm3 (4.6-6.20); Red Cell Distribution Width 13.7 % (11.5-14.5); White Blood Count 4.9 K/mm3 (4.5-10.0)
[2024-06-02 15:15] LABS: Alanine Aminotransferase 36 U/L (6-50); Albumin Level 4.6 g/dL (3.5-5.1); Alkaline Phosphatase 74 U/L (38-126); Anion Gap 6 mmol/L (4-12); Aspartate Amino Transferase 44 U/L (17-59); Bilirubin,Total 0.8 mg/dL (0.2-1.3); Blood Urea Nitrogen 13 mg/dL (9-20); Calcium 9.4 mg/dL (8.4-10.2); Carbon Dioxide 31 mmol/L (22-30); Chloride 100 mmol/L (98-107); Cholesterol 137 mg/dL (0-200); Estimated Glomerular Filt Rate > 60; Glucose 91 mg/dL (65-110); HDL Direct 67 mg/dL; Sodium 137 mmol/L (137-145); Triglycerides 49 mg/dL (<150)
[2024-06-02 15:26] LABS: LDL Cholesterol Direct 45 mg/dL
[2024-06-02 19:24] LABS: Hemoglobin A1C 6.1 % (<5.7)
== END 2024-06-02 08:07 | disposition home or self-care (01) ==
PROVIDERS: PCP Internal Medicine; Visit Provider Nurse Practitioner
DX: R73.03 Prediabetes (principal); E78.2 Mixed hyperlipidemia; R97.20 Elevated prostate specific antigen [PSA]; Z13.29 Encounter for screening for other suspected endocrine disorder
CPT/HCPCS: 36415; 80053; 80061; 83036; 84153; 85025